=== PATIENT | male | born 1955 | race Caucasian/White ===

== ENCOUNTER 2019-08-09 13:51 | Emergency (ER) | payer OTHER ==
[2019-08-09] MEDS ORDERED: KETOROLAC TROMETHAMINE 60 MG/2 ML SDV IM ONE (14:07)
--- NOTE | 2019-08-09 14:09 | ER Document Report ---
HPI - HPI Time Seen by Provider: 08/09/19 14:00 Pain Level: 2 Notes: 63-year-old male patient presents the emergency department chief complaint of low back pain and numbness and tingling in his right leg. Patient reports he has had back pain for the last few days, today he went to [place] to take out some trash and he was lifting heavy items and twisting when the back pain got worse and he now has some numbness and tingling going down his right buttock and into his leg. He denies any loss of control bowel or bladder, denies any urinary retention. He is not an IV drug user. - ROS Systems Reviewed and Negative: Yes All other systems reviewed and negative - MUSCULOSKELETAL Musculoskeletal: REPORTS: Back Pain - With radiation down right leg and tingling sensation Past Medical History - General Information source: Patient - Social History Smoking Status: Never Smoker Frequency of alcohol use: None Drug Abuse: None Family History: Reviewed & Not Pertinent - Past Medical History Cardiac Medical History: Reports: Hx Hypertension Past Surgical History: Reports: Hx Orthopedic Surgery - left knee Vertical Provider Document - CONSTITUTIONAL Notes: PHYSICAL EXAMINATION: GENERAL: Well-appearing, well-nourished and in no acute distress. HEAD: Atraumatic, normocephalic. EYES: Pupils equal round and reactive to light, extraocular movements intact, sclera anicteric, conjunctiva are normal. ENT: Nares patent, oropharynx clear without exudates. Moist mucous membranes. NECK: Normal range of motion, supple without lymphadenopathy LUNGS: Breath sounds clear to auscultation bilaterally and equal. No wheezes rales or rhonchi. HEART: Regular rate and rhythm without murmurs ABDOMEN: Soft, nontender, nondistended abdomen. No guarding, no rebound. No masses appreciated. Musculoskeletal: Normal range of motion, no pitting or edema. No cyanosis. Tenderness to palpation in the lumbar paraspinous region on the right side. Tenderness in the right buttock. No crepitus, step-off or deformity noted, no vertebral tenderness. NEUROLOGICAL: Cranial nerves grossly intact. Normal speech, normal gait. Normal sensory, motor exams. Normal strength bilaterally to upper and lower extremities. PSYCH: Normal mood, normal affect. SKIN: Warm, Dry, normal turgor, no rashes or lesions noted. Course - Re-evaluation Re-evalutation: Lumbar Spine CT 08/09/19 14:07 IMPRESSION: Multilevel degenerative changes of the lumbar spine with areas of disc herniation and neural foraminal stenosis as well as scattered areas of central canal stenosis. No acute findings are appreciated. Patient reports significant improvement of his symptoms after administration of IM Toradol here in the emergency department. As outlined in the HPI his also gave him a tablet of baclofen 20 mg prior to arrival. Patient does have some minor disc bulging/herniations on the CT. A copy of the CT was given to him for review by his primary care provider. Patient verbalized understanding and agreement this plan. Prescription sent for baclofen, patient encouraged to take ibuprofen. - Vital Signs Vital signs: Temp Pulse Resp BP Pulse Ox 98.5 F 69 16 151/87 H 97 08/09/19 13:59 08/09/19 13:59 08/09/19 13:59 08/09/19 13:59 08/09/19 13:59 Discharge - Discharge Clinical Impression: herniated disk Low back pain Qualifiers: Chronicity: acute Back pain laterality: bilateral Sciatica presence: with sciatica Sciatica laterality: sciatica of right side Qualified Code(s): M54.41 - Lumbago with sciatica, right side Condition: Stable Disposition: HOME, SELF-CARE Additional Instructions: You have been seen in the Emergency Department (ED) today for back pain. Your workup and exam have not shown any acute abnormalities and you are likely suffering from muscle strain or possible problems with your discs, but there is no treatment that will fix your symptoms at this time. Please take the muscle relaxer that has been prescribed as directed. You should also purchase a local lidocaine cream such as "aspercreme with lidocaine" and use per bottle instructions to the affected area. Apply heat to the area as often as you are able. Continue to keep active and avoid prolonged periods of bed rest. Please follow up with your doctor as soon as possible regarding today's ED visit and your back pain. Return to the ED for worsening back pain, fever, weakness or numbness of either leg, or if you develop either (1) an inability to urinate or have bowel movements, or (2) loss of your ability to control your bathroom functions (if you start having "accidents"), or if you develop other new symptoms that concern you.concern you. Prescriptions: Baclofen [Baclofen 20 Mg Tablet] 10 mg PO Q4H #30 tablet Referrals: CHIP GALDAMEZ MD [Primary Care Provider] - Follow up as needed
--- NOTE | 2019-08-09 15:01 | RADIOLOGY REPORT (SQ) ---
EXAM DESCRIPTION: CT LUMBAR SPINE WITHOUT IMAGES COMPLETED DATE/TIME: 08/09/2019 2:47 pm REASON FOR STUDY: low back pain R leg numbness COMPARISON: None. TECHNIQUE: Axial images acquired through the lumbar spine without intravenous contrast. Images revi ewed with lung, soft tissue and bone windows. Reconstructed coronal and sagittal MPR images reviewed . All images stored on PACS. All CT scanners at this facility use dose modulation, iterative reconstruction, and/or weight based d osing when appropriate to reduce radiation dose to as low as reasonably achievable (ALARA). [facility]: Dose Right [facility]: CareDose [facility]: Dose Right [facility]: Teradose 4D [facility]: [employer] RADIATION DOSE: mGy. LIMITATIONS: None. FINDINGS: SEGMENTATION: Normal. No transitional anatomy. ALIGNMENT: Normal. VERTEBRAL BODIES: No fractures. No dislocation. No acute findings. DISCS: There is posterior disc herniations present at the L3 through S1 levels producing some central spinal stenosis as well as neural foraminal stenosis throughout the lower lumbar spine. PEDICLES, TRANSVERSE PROCESSES: No fractures. No dislocation. No acute findings. FACETS, POSTERIOR ELEMENTS: There is facet arthrosis in the lower lumbar spine that contributes to ne ural foraminal stenosis. There is redundancy of the ligamentum flavum throughout the lumbar spine th at also has 2 some central canal stenosis. HARDWARE: None in the spine. VISUALIZED RIBS: No fractures. SOFT TISSUES: No significant or acute finding in adjacent soft tissues. OTHER: No other significant finding. IMPRESSION: Multilevel degenerative changes of the lumbar spine with areas of disc herniation and ne ural foraminal stenosis as well as scattered areas of central canal stenosis. No acute findings are appreciated. TECHNICAL DOCUMENTATION: JOB ID: [id number] Quality ID # [id number]: Final reports with documentation of one or more dose reduction techniques (e.g., Au tomated exposure control, adjustment of the mA and/or kV according to patient size, use of iterative reconstruction technique) 2010 [employer]- All Rights Reserved Reading location - IP/workstation name: [email or web address]
[2019-08-09 15:33] VITALS: BP 156/89
== END 2019-08-09 15:41 | disposition home or self-care (01) ==
LOC: ER 13:51
DX: M54.41 Lumbago with sciatica, right side (principal); M51.26 Other intervertebral disc displacement, lumbar region; M79.604 Pain in right leg; R20.0 Anesthesia of skin; X50.0XXA Overexertion from strenuous movement or load, initial encounter; I10 Essential (primary) hypertension
CPT/HCPCS: 99283; 96372; 72131; J1885